=== PATIENT | male | born 1970 | race Caucasian/White ===

== ENCOUNTER 2018-12-04 05:39 | Outpatient (CLI) | payer BC ==
[~2018-12-04] VITALS: Ht 175.3 cm; Wt 75.3 kg
[~2018-12-04 05:39] MED LIST: AGM875T GT; CETI5TAB6 PO; HYDR1TAB PO; PENI500T PO; PREDNISONE TAPER
[2018-12-04] MEDS ORDERED: PSEU60TA20 PO (10:58)
[2018-12-04] MEDS ORDERED: METH5TAB PO (10:58)
[2018-12-04] MEDS ORDERED: GABA-486 PO (10:58)
[2018-12-08] MEDS ORDERED: SUCR1TAB36 PO (16:37)
[2018-12-08] MEDS ORDERED: PANT40TA2 PO (16:37)
== END 2018-12-04 11:01 | disposition home or self-care (01) ==
LOC: PREOP 05:39
PROVIDERS: ATTEND Surgery
DX: Z01.818 Encounter for other preprocedural examination (principal)

== ENCOUNTER → 2018-12-08 | Day surgery (SDC) | payer BC ==
[~2018-12-08] VITALS: Ht 175.3 cm; Wt 75.3 kg
[~2018-12-08] MED LIST changes: +GABA-486 PO; +HURRICAINE EXT TUBE (BENZOCAINE) XX PRN; +LACTATED RINGERS 1,000 ML IV ONE; +LACTATED RINGERS 1,000 ML IV STA; +METH5TAB PO; +MIDAZOLAM 2 MG/2 ML (VERSED) VIAL ONE; +PANT40TA2 PO; +PROPOFOL INJECTION 50 ML IV ONE; +PSEU60TA20 PO; +SUCR1TAB36 PO; +fentaNYL INJECTION 100 MCG/2 ML AMP ONE; +proPOfol 200 MG/20 ML (DIPRIVAN) VIAL IV ONE
[2018-12-08 14:23] VITALS: BP 122/85
--- NOTE | 2018-12-08 15:54 | Progress Note-Pre Operative ---
Pre-Operative Progress Note H&P Reviewed The H&P was reviewed, patient examined and no changes noted. Date Seen by Provider: Dec 08, 2018 Time Seen by Provider: 15:40 Date H&P Reviewed: Dec 08, 2018 Time H&P Reviewed: 15:40 Pre-Operative Diagnosis: GERD, Screening colonoscopy GERARDO BARRETT DO Dec 08, 2018 15:54
--- NOTE | 2018-12-08 16:34 | Progress Note-Post Operative ---
Post-Operative Progess Note Surgeon (s)/Taping Machine Operator (s) Surgeon GERARDO BARRETT DO Taping Machine Operator: na Pre-Operative Diagnosis GERD, Screening colonoscopy Post-Operative Diagnosis gastritis, reflux esophagitis, likely chan's, colon polyps Procedure & Operative Findings Date of Procedure 12/08/18 Procedure Performed/Findings egd c biopsies, colonoscopy c hot bx polypectomy x 6 snare polypectomy x 1 Anesthesia Type per tag meter operator Estimated Blood Loss Estimated blood loss (mL): none Specimens/Packing Specimens Removed antrum, body, ge, proximal esophagus, colon polyps GERARDO BARRETT DO Dec 08, 2018 16:34
--- NOTE | 2018-12-08 16:36 | Anesthesia-General Post-Op ---
MAC Patient Condition Mental Status/LOC: Same as Preop Cardiovascular: Satisfactory Nausea/Vomiting: Absent Respiratory: Satisfactory Pain: Controlled Complications: Absent Post Op Complications Complications None Follow Up Care/Instructions Patient Instructions None needed. Anesthesiology Discharge Order Discharge Order Patient is doing well, no complaints, stable vital signs, no apparent adverse anesthesia problems. No complications reported per nursing. BLAKE DOTY CRNA Dec 08, 2018 16:36
--- NOTE | 2018-12-08 16:38 | Discharge Inst-Simple/Standard ---
Discharge Inst-Standard Discharge Medications New, Converted or Re-Newed RX: Transmitted to Pharmacy Patient Instructions/Follow Up Plan of Care/Instructions/FU: 2 weeks Germain Activity as Tolerated: Yes Discharge Diet: Regular Diet GERARDO BARRETT DO Dec 08, 2018 16:38
[2018-12-08 16:50] VITALS: BP 126/70
[2018-12-08 17:15] VITALS: BP 138/86
--- NOTE | 2018-12-09 00:12 | OPERATIVE REPORT ---
DATE OF SERVICE: 12/08/2018 PREOPERATIVE DIAGNOSES: Gastroesophageal reflux disease, screening colonoscopy. 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 PROCEDURE: EGD with biopsies, colonoscopy with hot biopsy, polypectomy x6 and snare polypectomy x1. SURGEON: Gerardo Groves DO ANESTHESIA: Per TANNING CONSULTANT. ESTIMATED BLOOD LOSS: None. COMPLICATIONS: None. INDICATIONS: The patient is a 48-year-old male with significant reflux symptoms. He understands risks and benefits of procedure and also needing colonoscopy. He wishes to proceed with procedure. Consent was signed and on the chart. DESCRIPTION OF PROCEDURE: The patient was taken to endoscopy suite, placed in left lateral recumbent position. Timeout was performed. Scope was inserted in mouth, down the esophagus, stomach and into the duodenum without difficulty. There were no polyps, masses or ulcerations within the duodenum. Scope was slowly retracted back into the stomach where it was further insufflated. Significant erythematous changes consistent with gastritis were present throughout the stomach. Biopsy of the antrum and stomach were obtained. No polyps, masses or ulcerations. Scope was retroflexed noting no other pathology. Scope was returned to its normal position, slowly withdrawn into the distal esophagus, which had changes consistent with reflux esophagitis and likely Sauceda's. Biopsies of the distal esophagus, GE junction were obtained. Scope was then slowly retracted back and there is an area in the proximal esophagus, which had the appearance of distant some intestinal metaplasia. Biopsy was obtained. Scope was then slowly retracted back until completely removed. Digital rectal exam was performed. There were no palpable polyps, masses or ulcerations. Scope was inserted in the rectum and advanced all the way to the cecum with minimal difficulty. Prep was adequate with some irrigation and suction. Scope was then slowly retracted back. There were no polyps, masses or ulcerations in the cecum. In the ascending colon, a small polyp was present, which hot biopsy polypectomy was performed. The scope was continued to be slowly retracted back and in the hepatic flexure, there were 2 polyps in the hepatic flexure, which hot biopsy polypectomy was performed. Scope was continuously retracted. There are no polyps, mass or ulcerations within the transverse colon, descending colon and the sigmoid colon. The larger polyp was present, which snare polypectomy was performed. This was suctioned without difficulty. Scope was then slowly retracted back and in the rectosigmoid junction, a small polyp was present, which hot biopsy polypectomy was performed. Scope was continuously retracted back to the rectum, there were 2 small polyps, which hot biopsy polypectomy was performed on these 2 polyps. Scope was retroflexed noting no other pathology. Scope was returned to its normal position, slowly withdrawn until completely removed. The patient tolerated procedure well without any complications, taken to recovery room in stable condition. RECOMMENDATIONS: The patient will be started on Protonix 40 mg daily and Carafate 1 gram four times a day. He will follow up in the office in 2 weeks. He will need repeat colonoscopy in one year unless he has any issues before that. This is due to the number of polyps. Job ID: [id number] DocumentID: [id number] Dictated Date: 12/08/2018 16:42:55 Genetic Physician Date: 12/09/2018 00:11:29 Dictated By: GERARDO GROVES DO
== END | disposition home or self-care (01) ==
LOC: ENDO 13:49
PROVIDERS: ATTEND Surgery
DX: Z12.11 Encounter for screening for malignant neoplasm of colon (principal); D12.2 Benign neoplasm of ascending colon; D12.3 Benign neoplasm of transverse colon; D12.5 Benign neoplasm of sigmoid colon; K63.5 Polyp of colon; K21.0 Gastro-esophageal reflux disease with esophagitis; K29.50 Unspecified chronic gastritis without bleeding; B96.81 Helicobacter pylori [H. pylori] as the cause of diseases classified elsewhere; E05.90 Thyrotoxicosis, unspecified without thyrotoxic crisis or storm; Z87.891 Personal history of nicotine dependence; Z79.899 Other long term (current) drug therapy

== ENCOUNTER → 2020-08-17 | Outpatient (CLI) | payer BC, OTHER ==
[~2020-08-17] MED LIST changes: -HURRICAINE EXT TUBE (BENZOCAINE) XX PRN; -LACTATED RINGERS 1,000 ML IV ONE; -LACTATED RINGERS 1,000 ML IV STA; -MIDAZOLAM 2 MG/2 ML (VERSED) VIAL ONE; -PROPOFOL INJECTION 50 ML IV ONE; -PSEU60TA20 PO; +PSEU60TA21 PO; -fentaNYL INJECTION 100 MCG/2 ML AMP ONE; -proPOfol 200 MG/20 ML (DIPRIVAN) VIAL IV ONE
--- NOTE | 2020-08-17 10:50 | Diagnostic Imaging Report ---
Clinical indication: Patient complains of pain radiating down right leg x2 days. EXAM: X-ray of the lumbar spine, 3 views. COMPARISON: None. FINDINGS: There is reversal of the lumbar lordosis. There is no acute lumbar spine fracture or dislocation. There is mild hypertrophic spurs involving the lumbar spine most pronounced at the L2-L3 level. The intervertebral disk heights are maintained. Spiculated joints are unremarkable. Surgical repair jaida are seen overlying the pelvis. IMPRESSION: 1: There is no acute fracture or dislocation. 2: There is lumbar spine degenerative disease. There is reversal of the lumbar spine lordosis. If patient is having radicular symptoms, then MRI of the lumbar spine may help better evaluate. Dictated by: Dictated on workstation # [id number]
--- NOTE | 2020-08-17 10:57 | Diagnostic Imaging Report ---
CLINICAL INDICATION: Patient complains of pain radiating down right leg times approximately 2 days. EXAM: X-ray of the pelvis AP view. COMPARISON: None. FINDINGS: There is no acute fracture or dislocation. There is no significant bone or joint abnormality. The sacroiliac joints are unremarkable. Surgical jaida are seen overlying the pelvis. The visualized lower lumbar spine is unremarkable. IMPRESSION: Unremarkable x-ray of the pelvis and hips. Dictated by: Dictated on workstation # [id number]
== END ==
LOC: RAD 09:32
PROVIDERS: ATTEND Nurse Practitioner Family
DX: M47.816 Spondylosis without myelopathy or radiculopathy, lumbar region (principal)
CPT/HCPCS: 72100; 72170

== ENCOUNTER → 2022-01-03 | Outpatient (CLI) | payer OTHER ==
[~2022-01-03] MED LIST changes: -PSEU60TA21 PO; +PSEU60TA87 PO
--- NOTE | 2022-01-03 12:24 | Diagnostic Imaging Report ---
EXAMINATION: CT Lung Screening. INDICATION: 62-gwae-paru smoking history, for baseline low-dose CT screening. TECHNIQUE: Noncontrast, low-dose CT imaging performed according to the lung cancer screening protocol. Auto Exposure Controls were utilize during the CT exam to meet ALARA standards for radiation dose reduction. COMPARISON: Baseline. FINDINGS: There are emphysematous changes with some biapical bullae. No lung mass or suspicious pulmonary nodule. There is no axillary, hilar, or mediastinal lymphadenopathy. The aorta is nonaneurysmal. No appreciable coronary artery atherosclerotic calcifications. Upper abdomen is nonacute. IMPRESSION: No evidence for lung cancer. Annual low-dose CT screening follow-up recommended. LUNG-RADS CATEGORY: 1 Dictated by: Dictated on workstation # [id number]
== END ==
LOC: RAD 10:15
PROVIDERS: ATTEND Nurse Practitioner Family
DX: Z12.2 Encounter for screening for malignant neoplasm of respiratory organs (principal); F17.210 Nicotine dependence, cigarettes, uncomplicated
CPT/HCPCS: 71271

== ENCOUNTER → 2022-02-28 | Outpatient (CLI) | payer OTHER ==
--- NOTE | 2022-02-28 17:12 | Diagnostic Imaging Report ---
EXAMINATION: Cervical spine radiographs, 3 views. COMPARISON: None. HISTORY: 51-year-old male, neck and back pain. FINDINGS: The lateral masses of C1 are normally aligned relative to C2. Additional alignment of the cervical spine is unremarkable. There is no prominent prevertebral soft tissue swelling. The cervical disc heights are well-maintained. There is no identified acute fracture of the cervical spine. The patient is edentulous. IMPRESSION: 1. Unremarkable radiographs of the cervical spine. Dictated by: Dictated on workstation # [id number]
--- NOTE | 2022-02-28 17:14 | Diagnostic Imaging Report ---
EXAMINATION: Lumbar spine radiographs, 3 views. COMPARISON: None. HISTORY: 51-year-old male, low back pain. FINDINGS: There is a mild lumbar levocurvature. Anterior to posterior alignment of lumbar spine is unremarkable. There is no identified compression deformity or fracture. There are mild endplate degenerative related changes at L2-L3 and L3-L4. The disc heights appear well preserved. Unremarkable appearance of the facet articulations. The sacroiliac joints are unremarkable in appearance. IMPRESSION: 1. Mild lumbar levocurvature. 2. Mild disc degenerative changes of the lumbar spine at L2-L3 and L3-L4 without disc height loss. 3. No identified compression deformity or fracture. Dictated by: Dictated on workstation # [id number]
== END ==
LOC: RAD 14:43
PROVIDERS: ATTEND Nurse Practitioner Family
DX: M51.36 Other intervertebral disc degeneration, lumbar region (principal); M43.8X6 Other specified deforming dorsopathies, lumbar region; M54.12 Radiculopathy, cervical region
CPT/HCPCS: 72040; 72100

== ENCOUNTER → 2022-07-17 | Outpatient (CLI) | payer OTHER ==
--- NOTE | 2022-07-17 16:43 | Diagnostic Imaging Report ---
INDICATION: Dyspnea and congestion. TECHNIQUE: PA and lateral views of the chest are obtained. COMPARISON: No previous study is available for comparison at this time. FINDINGS: Heart size and pulmonary vasculature are within normal limits, and the lungs are clear, bilaterally. IMPRESSION: Unremarkable chest. Dictated by: Dictated on workstation # [id number]
== END ==
LOC: RAD 15:23
PROVIDERS: ATTEND Nurse Practitioner Family
DX: J45.909 Unspecified asthma, uncomplicated (principal)
CPT/HCPCS: 71046

== ENCOUNTER → 2022-10-09 | Outpatient (CLI) | payer OTHER ==
[2022-10-09 16:29] LABS: BASOPHILS # (AUTO) 0.1 10^3/uL (0.0-0.1); BASOPHILS % (AUTO) 1 % (0-10); EOSINOPHILS # (AUTO) 0.2 10^3/uL (0.0-0.3); EOSINOPHILS % (AUTO) 2 % (0-10); HEMATOCRIT 40 % (40-54); HEMOGLOBIN 13.7 g/dL (13.3-17.7); LYMPHOCYTES # (AUTO) 2.5 10^3/uL (1.0-4.0); LYMPHOCYTES % (AUTO) 22 % (12-44); MEAN CORPUSCULAR HEMOGLOBIN 29 pg (25-34); MEAN CORPUSCULAR HGB CONC 34 g/dL (32-36); MEAN CORPUSCULAR VOLUME 84 fL (80-99); MEAN PLATELET VOLUME 9.8 fL (9.0-12.2); MONOCYTES # (AUTO) 0.8 10^3/uL (0.0-1.0); MONOCYTES % (AUTO) 7 % (0-12); NEUTROPHILS # (AUTO) 7.8 10^3/uL (1.8-7.8); NEUTROPHILS % (AUTO) 69 % (42-75); PLATELET COUNT 286 10^3/uL (130-400); WHITE BLOOD COUNT 11.4 10^3/uL (4.3-11.0)
[2022-10-09 16:33] LABS: POTASSIUM 4.1 MMOL/L (3.6-5.0)
[2022-10-09 16:34] LABS: CALCIUM 9.3 MG/DL (8.5-10.1)
[2022-10-09 16:35] LABS: TOTAL PROTEIN 7.2 GM/DL (6.4-8.2)
[2022-10-09 16:37] LABS: BILIRUBIN,TOTAL 0.4 MG/DL (0.1-1.0)
[2022-10-09 16:39] LABS: CREATININE SERUM 1.51 MG/DL (0.60-1.30)
[2022-10-09 17:02] LABS: FREE T4 (FREE THYROXINE) 0.99 NG/DL (0.70-1.48)
== END ==
LOC: CARD 16:05
PROVIDERS: ATTEND Nurse Practitioner Family
DX: E05.90 Thyrotoxicosis, unspecified without thyrotoxic crisis or storm (principal)
CPT/HCPCS: 36415; 80053; 84439; 84443; 85025; 93005

== ENCOUNTER → 2022-11-07 | Outpatient (CLI) | payer BC, OTHER ==
--- NOTE | 2022-11-07 10:59 | Diagnostic Imaging Report ---
PROCEDURE: US carotid duplex, bilateral. TECHNIQUE: Multiple real-time grayscale images were obtained over the carotid arteries in various projections, bilaterally. Additional spectral analysis and color Doppler duplex images were also obtained. INDICATION: Syncope Grayscale images show minimal atherosclerotic plaque. There is no alteration of waveforms or velocities. The vertebral arteries are both patent with antegrade flow. IMPRESSION: Minimal atherosclerotic change of the carotid bifurcations. There is no hemodynamically significant stenosis. Parameters based on the consensus panel Couch-Scale and Doppler ultrasound criteria published April 2003, Radiology, Volume 229. DOPPLER (peak systolic velocity M/S Right Left CCA 0.76 0.71 ICA Proximal 0.76 0.73 ICA Mid 0.75 0.70 ICA Distal 0.71 0.83 RATIO 1.00 1.18 ECA 0.93 1.04 VERT 0.41 0.41 Dictated by: Dictated on workstation # [id number]
== END ==
LOC: RAD 09:00
PROVIDERS: ATTEND Nurse Practitioner Family
DX: R55 Syncope and collapse (principal)
CPT/HCPCS: 93880